=== PATIENT | female | born 1940 | race Two or more races ===

== ENCOUNTER 2021-05-12 16:15 | Emergency (ER) | payer MEDICARE ==
[~2021-05-12] VITALS: Ht 160 cm; Wt 60.0 kg
[~2021-05-12 16:15] MED LIST: AMLO1TAB31 PO; AMOX1TAB15 PO; CALC-793 PO; DONE-46 PO; HYDR-4383 PO; KEP500T PO; LEVO25TA2 PO; METO50TA17 PO; OMEP20CA15 PO; ONDA4TAB6 PO
[2021-05-12 16:41] VITALS: BP 130/77
== END 2021-05-12 17:52 | disposition home or self-care (01) ==
LOC: ER 16:16
DX: J06.9 Acute upper respiratory infection, unspecified (principal); Z20.822 Contact with and (suspected) exposure to COVID-19; R05.9 Cough, unspecified; R53.83 Other fatigue; E78.00 Pure hypercholesterolemia, unspecified; I10 Essential (primary) hypertension; E03.9 Hypothyroidism, unspecified; Z86.69 Personal history of other diseases of the nervous system and sense organs; Z95.0 Presence of cardiac pacemaker; Z79.2 Long term (current) use of antibiotics; Z79.899 Other long term (current) drug therapy
CPT/HCPCS: 71045; 87635; 99284; C9803